=== PATIENT | male | born 2000 | race Caucasian/White ===

== ENCOUNTER → 2025-02-16 | Outpatient (CLI) | payer BC, MEDICAID, SELFPAY ==
--- NOTE | 2025-02-16 16:00 | XR_ITS ---
Examination: Testicular sonography complete TECHNIQUE: Grayscale sonographic images testes, assessment arterial inflow venous outflow Doppler spectral analysis carful analysis Date and time: February 16, 2025 1544 hours INDICATIONS: Diagnosis spermatocele, epididymal cysts FINDINGS: Right testis 4.2 cm epididymis 1.1 cm Arterial flow testicle. No testicular mass Left testis 4.6 cm epididymis 1.3 cm 5 mm 4 mm epididymal cysts Arterial flow testicle. No testicular mass Bilateral testicular microlithiasis IMPRESSION: No testicular torsion or testicular mass Bilateral benign epididymal cyst Testicular microlithiasis
== END | disposition home or self-care (01) ==
PROVIDERS: PCP Physician Assistant; Referring Provider Urology; Visit Provider Urology
DX: N50.3 Cyst of epididymis (principal)
CPT/HCPCS: 76870

== ENCOUNTER → 2025-06-21 | Outpatient (BNVA) | payer BC, MEDICAID, SELFPAY | END | disposition home or self-care (01) | PROVIDERS: PCP Physician Assistant; Referring Provider Physician Assistant; Visit Provider Urology | DX: N50.3 Cyst of epididymis (principal); I10 Essential (primary) hypertension; E66.01 Morbid (severe) obesity due to excess calories; Z68.42 Body mass index [BMI] 45.0-49.9, adult | CPT/HCPCS: 81003; 99212; G0463 ==